=== PATIENT | female | born 1985 | race Caucasian/White ===

== ENCOUNTER → 2022-10-21 12:45 | Outpatient (CLI) | payer OTHER, SELFPAY ==
--- NOTE | 2022-10-21 | DI.MRI.S_ITS ---
PROCEDURE: MR ANKLE RT WO CON INDICATIONS: Pain in right foot TECHNIQUE: Noncontrast sagittal T1 spin echo and T2 fast spin echo with fat saturation, axial proton density fast spin echo and T2 fast spin echo with fat saturation, coronal T1 spin echo and T2 fast spin echo with fat saturation through the ankle/hindfoot. COMPARISON: None. FINDINGS: Image quality: Excellent. Bones and joints: No bone marrow contusions or fractures. No hindfoot coalitions. No osteochondral injuries of the talar dome. Mild degenerative spurring of the dorsal talonavicular and navicular cuneiform articulations. Mild degenerative changes at the 2nd and 3rd tarsometatarsal joints. Lobular ganglion cyst versus loculated joint fluid measuring 16 x 8 x 6 mm posterior to the posterior subtalar facet. Medial structures: Intermediate signal intensity in the deep fibers of the deltoid ligament is compatible with a remote prior low-grade sprain. The visualized spring ligament components are intact. The posterior tibialis, flexor digitorum longus, and flexor hallucis longus tendons are intact. The posterior tibial neurovascular bundle appears normal within the tarsal tunnel, without extrinsic mass effect. Lateral structures: Mild thickening of the anterior talofibular ligament and calcaneofibular ligament is most likely secondary to remote prior sprains. The posterior talofibular ligament is intact. The anterior and posterior tibiofibular ligaments are intact. Mild peroneus brevis and longus tendinosis. A 16 x 15 x 7 mm ganglion cyst is seen extending superiorly from the lateral sinus tarsi. Anterior structures: The tibialis anterior, extensor hallucis longus, and extensor digitorum longus tendons appear intact. The dorsal talonavicular ligament appears intact. Posterior and plantar structures: Mild Achilles tendinosis. There is thickening of the proximal plantar fascia a, consistent with moderate chronic fasciitis. No abductor digiti quinti muscle atrophy to suggest Ball neuropathy. IMPRESSION: 1. Remote prior low-grade sprains of the anterior talofibular ligament and calcaneofibular ligament. 2. Mild peroneus brevis and longus tendinosis. 3. Remote prior low-grade sprain of the deltoid ligament. 4. Moderate chronic proximal plantar fasciitis. 5. Mild Achilles tendinosis. 6. Mild degenerative changes in the talonavicular, navicular cuneiform, and 2nd and 3rd tarsometatarsal joints. 7. Loculated fluid adjacent to posterior subtalar facet may represent a ganglion cyst or loculated joint fluid. A 16 mm ganglion cyst is seen arising from the lateral sinus tarsi Approved by: Carlos Sanchez M.D. on 10/21/2022 at 14:45
== END ==
PROVIDERS: PCP Student in an Organized Health Care Education/Training Program; Referring Provider Podiatrist; Visit Provider Podiatrist
DX: G57.51 Tarsal tunnel syndrome, right lower limb (principal); M67.471 Ganglion, right ankle and foot; S93.491A Sprain of other ligament of right ankle, initial encounter; S93.411A Sprain of calcaneofibular ligament of right ankle, initial encounter; S93.421A Sprain of deltoid ligament of right ankle, initial encounter; M72.2 Plantar fascial fibromatosis; M79.671 Pain in right foot
CPT/HCPCS: 73721